=== PATIENT | male | born 1995 | race African-American/Black ===

== ENCOUNTER 2017-11-25 23:43 | Emergency (ER) | payer OTHER ==
[~2017-11-25] VITALS: Ht 177.8 cm; Wt 65.8 kg
[2017-11-26 00:03] VITALS: BP 118/70
[2017-11-26] MEDS ORDERED: DICL50TA4 PO (00:20)
[2017-11-26] MEDS ORDERED: HYDR-971 PO (00:20)
--- NOTE | 2017-11-26 00:20 | PHYS DOC ---
Past Medical History Past Medical History: Other Additional Past Medical Histor: LEUKEIMIA IN REMISSION X3 YEARS Past Surgical History: No Surgical History Alcohol Use: None Drug Use: None Adult General Chief Complaint Chief Complaint: DENTAL PROBLEM HPI HPI Patient is a 22 year old male with no significant medical history presents today complaining of 6 out of 10 right lower gum dental pain that has been going on for the last 2 weeks. Patient denies any fever or trismus. Patient states he was started on amoxicillin a couple days ago. He states he has tried [id number] pain relievers with no relief. He states he has an appointment with [facility] next week. Review of Systems Review of Systems Constitutional: Denies fever or chills [] HENT: Reports right lower gum dental pain. Denies nasal congestion or sore throat [] Respiratory: Denies cough or shortness of breath [] Musculoskeletal: Denies back pain or joint pain [] Integument: Denies rash or skin lesions [] Neurologic: Denies headache, focal weakness or sensory changes [] All other systems were reviewed and found to be within normal limits, except as documented in this note. Allergies Allergies Allergies Coded Allergies Type Severity Reaction Last Updated Verified vancomycin Allergy Unknown RASH ON FACE 11/26/17 Yes Physical Exam Physical Exam Constitutional: Well developed, well nourished, no acute distress, non-toxic appearance. [] HENT: Normocephalic, atraumatic, bilateral external ears normal, oropharynx moist, no oral exudates, nose normal. [] Dental caries noted on tooth number 31, no gum erythema. Skin: Warm, dry, no erythema, no rash. [] Back: No tenderness, no CVA tenderness. [] Extremities: No tenderness, no cyanosis, no clubbing, ROM intact, no edema. [] Neurologic: Alert and oriented X 3, normal motor function, normal sensory function, no focal deficits noted. [] Psychologic: Affect normal, judgement normal, mood normal. [] Current Patient Data Vital Signs Vital Signs Date Time Temp Pulse Resp B/P (MAP) Pulse Ox O2 Delivery O2 Flow Rate FiO2 11/26/17 00:03 97.1 64 18 118/70 (86) 97 Room Air 97.1 EKG EKG [] Radiology/Procedures Radiology/Procedures [] Course & Med Decision Making Course & Med Decision Making Pertinent Labs and Imaging studies reviewed. (See chart for details) This is a 22-year-old male patient presenting to the ED today with dental pain. Has an appointment with his dentist next week. Will be discharged with 5 tablets of [place] and diclofenac. Currently on amoxicillin. Dragon Disclaimer Diogenes Disclaimer This electronic medical record was generated, in whole or in part, using a voice recognition dictation system. Departure Departure Impression: Primary Impression: Dentalgia Additional Impression: Dental caries Disposition: HOME, SELF-CARE Condition: STABLE Referrals: NO PCP (PCP) follow up with your dentist as soon as possible Patient Instructions: Dental Caries, Dental Pain Additional Instructions: You were seen for dental pain. Ensure you complete your antibiotics. Follow-up with your dentist as soon as you can. Scripts Diclofenac Sodium (DICLOFENAC SODIUM) 50 Mg Tablet. 1 TAB PO BID, #20 TAB 0 Refills Prov: NICKO RIVAS APRN 11/26/17 Hydrocodone/Apap 5-325 (NORCO 5-325 TABLET) 1 Each Tablet 1 TAB PO Q6-8HRS PRN for PAIN, #5 TAB Prov: NICKO RIVAS APRN 11/26/17 Problem Qualifiers NICKO RIVAS APRN Nov 26, 2017 00:20
== END 2017-11-26 00:24 | disposition home or self-care (01) ==
LOC: ER 23:43
DX: K02.9 Dental caries, unspecified (principal); K08.89 Other specified disorders of teeth and supporting structures; Z88.1 Allergy status to other antibiotic agents
CPT/HCPCS: 99283